=== PATIENT | male | born 1985 | race Caucasian/White ===

== ENCOUNTER 2018-06-15 19:38 | Emergency (ER) | payer OTHER ==
[2018-06-15] MEDS ORDERED: ACETAMINOPHEN 325 MG TAB PO ONE (20:02)
[2018-06-15] MEDS ORDERED: IBUPROFEN 200 MG TAB PO ONE (20:02)
[2018-06-15] MEDS ORDERED: PENICILLIN BENZATHINE 1.2 MU 1.2 MU/2 ML SYG IM ONE (20:27)
--- NOTE | 2018-06-15 20:39 | RAD ---
EXAM DESCRIPTION: Chest,2 Views CLINICAL HISTORY: fever, tachycardia, borderline o2sats COMPARISON: None. FINDINGS: Two views of the chest are submitted. Cardiac silhouette appears normal. There is mild bilateral pulmonary edema. No focal parenchymal or pleural disease. No acute bony abnormality. There is no significant pulmonary vascular engorgement. IMPRESSION: Mild pulmonary edema. This could reflect viral inflammation. Electronically signed by: Jose Benjamin 06/15/2018 8:35 PM [employer]
[2018-06-15] MEDS ORDERED: levoFLOXacin 500 MG TAB PO ONE (20:42)
--- NOTE | 2018-06-15 20:45 | ED.PDOC ---
History of Present Illness - General Chief Complaint: Fever Stated Complaint: fever, tooth ache, sore throat Time Seen by Provider: 06/15/18 19:40 Source: patient Exam Limitations: no limitations - History of Present Illness Initial Comments: the patient's 32-year-old male presented to emergency room secondary to severe sore throat, mild runny nose and significant fever. The patient is tachycardic in the 140s but it is a sinus tachycardia. No chest pain. No real shortness of breath.no syncope or near syncope. He additionally does have a dental root infection of the right inferior most posterior molar. Timing/Duration: 24 hours Severity: moderate Improving Factors: nothing Worsening Factors: nothing Associated Symptoms: cough, fever/chills, loss of appetite, malaise Allergies/Adverse Reactions: Allergies NO KNOWN ALLERGY Allergy (Unverified 05/14/13 20:18) Home Medications: Ambulatory Orders levoFLOXacin [Levaquin] 500 mg PO DAILY #10 tab 06/15/18 Review of Systems - Review of Systems Constitutional: States: chills, fever EENTM: States: nose congestion, throat pain, mouth pain Respiratory: States: cough Cardiology: States: no symptoms reported Gastrointestinal/Abdominal: States: no symptoms reported Genitourinary: States: no symptoms reported Musculoskeletal: States: no symptoms reported Skin: States: no symptoms reported Neurological: States: no symptoms reported Endocrine: States: no symptoms reported All other Systems: No Change from Baseline Past Medical History (General) - Patient Medical History Hx Seizures: No Hx Stroke: No Hx Dementia: No Hx Asthma: No Hx of COPD: No Hx Cardiac Disorders: No Hx Congestive Heart Failure: No Hx Pacemaker: No Hx Hypertension: No Hx Thyroid Disease: No Hx Diabetes: Yes Hx Gastroesophageal Reflux: No Hx Renal Disease: No Hx of HIV: No Hx MRSA: No Surgical History: other - Vaccination History Hx Tetanus, Diphtheria Vaccination: No Hx Influenza Vaccination: No Hx Pneumococcal Vaccination: No Immunizations Up to Date: No - Social History Hx Tobacco Use: No Hx Alcohol Use: No Family Medical History - Family History Father Living Status: Age of Onset (years of age): 42 Hx Family Congestive Heart Failure: Yes Hx Family Hypertension: Yes Hx Cardiac Disease: Yes Hx Family Diabetes: Yes Hx Family;Other: Sickle cell anemia Physical Exam - Physical Exam General Appearance: Alert, No apparent distress Eye Exam: bilateral normal Ears, Nose, Throat: hearing grossly normal, pharyngeal erythema - with exudates, other - see history of present illness Neck: full range of motion, supple Respiratory: lungs clear, normal breath sounds, no respiratory distress, no accessory muscle use Cardiovascular/Chest: normal peripheral pulses, no edema, tachycardia - sinus tachycardia on telemetry monitoring Peripheral Pulses: radial,right: 2+, radial,left: 2+ Gastrointestinal/Abdominal: non tender, soft Rectal Exam: deferred Back Exam: no CVA tenderness, no vertebral tenderness Extremity: non-tender, normal inspection, no pedal edema, normal capillary refill 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 He was given a dose of Bicillin LA for the streptococcal pharyngitis and will be placed on Levaquin 500 mg daily for 10 days for the tooth infection. Motrin and Tylenol can be used to control f ever and symptoms. Keep well hydrated. Follow up with dentist. ER warnings were given for any worsening. - Results/Orders Results/Orders: rapid strep is positive. Flu is negative. chest x-ray shows no definitive focal infiltrates. No mass. Departure - Departure Clinical Impression: Streptococcal sore throat, Dental infection Disposition: Discharge to Home or Self Care Condition: Fair Departure Forms: ED Discharge - Pt. Copy, Patient Portal Self Enrollment Instructions: Sore Throat in Adults, Dental Pain (DC) Diet: regular diet Activity: increase activity as tolerated Prescriptions: levoFLOXacin [Levaquin] 500 mg PO DAILY #10 tab Home Medications: Ambulatory Orders levoFLOXacin [Levaquin] 500 mg PO DAILY #10 tab 06/15/18 Additional Instructions: The patient's a 32-year-old male presenting with streptococcal pharyngitis and a dental root infection. He was given a dose of Bicillin LA for the streptococcal pharyngitis and will be placed on Levaquin 500 mg daily for 10 days for the tooth infection. Motrin and Tylenol can be used to control fever and symptoms. Keep well hydrated. Follow up with dentist. ER warnings were given for any worsening.
[2018-06-15 21:02] VITALS: BP 107/71; TEMP 102.2; O2SAT 96
== END 2018-06-15 21:01 | disposition home or self-care (01) ==
LOC: ER 19:38
DX: J02.0 Streptococcal pharyngitis (principal); K04.7 Periapical abscess without sinus; E11.9 Type 2 diabetes mellitus without complications
CPT/HCPCS: 71046; 87502; 87880; J0561

== ENCOUNTER 2019-03-28 11:15 | Emergency (ER) | payer OTHER ==
[2019-03-28 11:45] VITALS: BP 118/92; TEMP 98.7; O2SAT 94
--- NOTE | 2019-03-28 12:15 | ED.PDOC ---
History of Present Illness - General Chief Complaint: ENT Problem Stated Complaint: right ear pain Time Seen by Provider: 03/28/19 12:11 Additional Information: The patient is a 33-year-old male who presents to the ED with chief complaint of right ear pain. Pain began 2 days ago on Tuesday when he felt like something was in his ear and he is to Q-tip to address her symptoms. Patient felt fine the rest the day and then developed an earache later that evening which has persisted. There is occasional slight serous discharge. Patient denies nausea, vomiting, fever, chills. She has had no recent illness or URI symptoms. Patient is otherwise healthy and does not have a history of ear problems. She denies any recent swimming. Patient has no other complaints at this time. - History of Present Illness Allergies/Adverse Reactions: Allergies NO KNOWN ALLERGY Allergy (Unverified 05/14/13 20:18) Home Medications: Ambulatory Orders levoFLOXacin [Levaquin] 500 mg PO DAILY #10 tab 06/15/18 Acetaminophen W/ Codeine [Tylenol W/ CODEINE #3] 1 ea PO Q6H PRN #20 03/28/19 Sj/Poly/Hc Otic Susp [Cortisporin Otic Susp] 4 drop OTIC Q6H #1 bttl 03/28/19 Review of Systems - Review of Systems Constitutional: States: no symptoms reported. Denies: chills, fever EENTM: States: see HPI. Denies: nose pain, nose congestion, throat pain Respiratory: States: no symptoms reported. Denies: cough, short of breath Cardiology: States: no symptoms reported. Denies: chest pain, palpitations Gastrointestinal/Abdominal: States: no symptoms reported. Denies: abdominal pain, diarrhea, nausea, vomiting Genitourinary: States: no symptoms reported Musculoskeletal: States: no symptoms reported All other Systems: Reviewed and Negative Past Medical History (General) - Patient Medical History Hx Seizures: No Hx Stroke: No Hx Dementia: No Hx Asthma: No Hx of COPD: No Hx Cardiac Disorders: No Hx Congestive Heart Failure: No Hx Pacemaker: No Hx Hypertension: No Hx Thyroid Disease: No Hx Diabetes: Yes Hx Gastroesophageal Reflux: No Hx Renal Disease: No Hx of HIV: No Hx MRSA: No Surgical History: other - Vaccination History Hx Tetanus, Diphtheria Vaccination: No Hx Influenza Vaccination: No Hx Pneumococcal Vaccination: No - Social History Hx Tobacco Use: No Hx Alcohol Use: No Family Medical History - Family History Father Living Status: Age of Onset (years of age): 42 Hx Family Congestive Heart Failure: Yes Hx Family Hypertension: Yes Hx Cardiac Disease: Yes Hx Family Diabetes: Yes Hx Family;Other: Sickle cell anemia Physical Exam - Physical Exam General Appearance: Alert, Comfortable, No apparent distress Ear Exam: right ear: other - right ear canal with mild erythema, edema, and small amounts of debris in the canal. Canal is patent and the TM is visible and normal., left ear: canal normal, bilateral ear: auricle normal, TM normal, TM red, TM bulging, TM perforation Nasal Exam: normal inspection Throat Exam: normal mouth inspection, pharynx normal Neck: non-tender, full range of motion, supple, normal inspection, trachea midline Cardiovascular/Respiratory: regular rate, rhythm, no M/R/G, normal peripheral pulses, no JVD, normal breath sounds, no respiratory distress Neurologic: oriented x 3 Skin Exam: normal color, warm/dry Progress - Progress Progress: 03/28/19 12:18 Patient with what appears to be early otitis externa to his right canal. We'll DC with topical antibiotic/steroid solution and I will give patient a referral to ENT. Return to ED precautions discussed with patient if he develops increased pain, discharge, redness, fever or vomiting. Patient is slightly tachycardic but this is nonspecific and I do not suspect adverse bacterial illness. There is no indication for formal ED workup today. Vital signs stable, patient NAD and appears clinically well, believe patient is safe for discharge with outpatient follow-up. Follow-up instructions, discharge instructions, return to ED warnings given. Patient voices understanding and willingness to comply with instructions as discussed. Patient will return to the ED with new or worsening symptoms. All questions answered. Patient is happy with plan. 03/28/19 12:24 Departure - Departure Clinical Impression: Otitis externa Qualifiers: Otitis externa type: unspecified type Chronicity: acute Laterality: right Qualified Code(s): H60.501 - Unspecified acute noninfective otitis externa, right ear Time of Disposition: 12:20 Disposition: Discharge to Home or Self Care Condition: Fair Departure Forms: ED Discharge - Pt. Copy, Patient Portal Self Enrollment Instructions: DI for Ear Pain-Adult, DI for Otitis Externa Referrals: TATIANNA MCCLOUD I [Consulting Staff] - 1-5 Days Petey Parker MD [Primary Care Provider] - 1-2 Days Prescriptions: Acetaminophen W/ Codeine [Tylenol W/ CODEINE #3] 1 ea PO Q6H PRN #20 PRN Reason: Pain Sj/Poly/Hc Otic Susp [Cortisporin Otic Susp] 4 drop OTIC Q6H #1 bttl Home Medications: Ambulatory Orders levoFLOXacin [Levaquin] 500 mg PO DAILY #10 tab 06/15/18 Acetaminophen W/ Codeine [Tylenol W/ CODEINE #3] 1 ea PO Q6H PRN #20 03/28/19 Sj/Poly/Hc Otic Susp [Cortisporin Otic Susp] 4 drop OTIC Q6H #1 bttl 03/28/19
== END 2019-03-28 12:31 | disposition home or self-care (01) ==
LOC: ER 11:15
DX: H60.501 Unspecified acute noninfective otitis externa, right ear (principal); E11.9 Type 2 diabetes mellitus without complications

== ENCOUNTER 2019-07-01 | Emergency (ER) | payer OTHER | END 2019-07-01 10:19 | disposition home or self-care (01) | DX: H61.22 Impacted cerumen, left ear (principal); H92.02 Otalgia, left ear; Z87.891 Personal history of nicotine dependence ==